=== PATIENT | female | born 1950 | race Caucasian/White ===

== ENCOUNTER 2016-09-12 12:33 | Emergency (ER) | payer OTHER ==
[2016-09-12 12:42] VITALS: TEMP 97.3
--- NOTE | 2016-09-12 13:35 | EDPHY ---
H & P Stated Complaint: SI/withdrawal from ativan/seen yesterday at [facility] Time Seen by Provider: 09/12/16 12:53 HPI/ROS: CHIEF COMPLAINT: "I am withdrawing from benzos" HISTORY OF PRESENT ILLNESS: 66-year-old female in the ER via private vehicle, driven by her daughter complaining of increased anxiety and possible benzodiazepine withdrawal. History of PTSD, has been on feeling Ativan for 1 year and was recently tapered down by her psychiatrist but notes increasing agitation, anxiety and depression without suicidal or homicidal ideation. Seen at [facility] yesterday and requested medical detoxification however this was unsuccessful and comes to the ER today requesting similar. REVIEW OF SYSTEMS: A ten point review of systems was performed and is negative with the exception of the items mentioned in the HPI PAST MEDICAL & SURGICAL HISTORY: PTSD. Anxiety. SOCIAL HISTORY: Nonsmoker. No alcohol. Lives with her daughter who is a nurse PHYSICAL EXAM (Prior to examination, patient consented to physical exam, hands were washed and my usual and customary physical exam procedures followed) 1) GENERAL: Well-developed, well-nourished, alert and oriented. Appears anxious 2) HEAD: Normocephalic, atraumatic 3) HEENT: Pupils equal, round, reactive to light bilaterally. Sclera anicteric. 4) NECK: Full range of motion, no meningeal signs. 5) LUNGS: Clear auscultation bilaterally, no wheezes, no rhonchi, no retractions. 6) HEART: Regular rate and rhythm, no murmur, no heave, no gallop. 7) ABDOMEN: No guarding, no rebound, no focal tenderness,, 8) MUSCULOSKELETAL: No peripheral edema or discoloration. 9) BACK: no visual or palpable abnormality. 10) SKIN: No rash, no petechiae. DIFFERENTIAL DIAGNOSIS: no particular order including but not limited to acute benzodiazepine withdrawal, suicidal ideation, homicidal ideation - Personal History Current Tetanus/Diphtheria Vaccine: Yes - Medical/Surgical History Hx Asthma: No Hx Chronic Respiratory Disease: No Hx Diabetes: No Hx Cardiac Disease: No Hx Renal Disease: No Hx Cirrhosis: No Hx Alcoholism: No Hx HIV/AIDS: No Hx Splenectomy or Spleen Trauma: No Other PMH: ptsd - Social History Smoking Status: Never smoked Constitutional: Initial Vital Signs Temperature (C) 36.3 C 09/12/16 12:40 Heart Rate 88 09/12/16 12:40 Respiratory Rate 22 H 09/12/16 12:40 Blood Pressure 110/84 H 09/12/16 12:40 O2 Sat (%) 96 09/12/16 12:40 O2 Delivery Mode Room Air Allergies/Adverse Reactions: trazodone Allergy (Verified 09/12/16 12:39) Home Medications: Medication Instructions Recorded Ativan 09/12/16 LaMICtal 09/12/16 Vistaril 09/12/16 Medical Decision Making ED Course/Re-evaluation: 1:34 p.m.: This patient does not meet criteria for mental health hold as she is not she is not experiencing suicidal homicidal ideation, answering questions appropriately.. She would like to remain in the ER voluntarily to be seen by mental health packaging clerk. 5:45 p.m.: Re-evaluation, Sleeping 5:56 p.m.: Mental health packaging clerk has evaluated patient. Patient does not meet criteria for mental health hold. Mental health packaging clerk has provided options the patient including following up [facility] on a nonemergent basis. In order to this patient will need to call tonight or tomorrow morning to set up an intake appointment. The patient has a sufficient supply of benzodiazepines at home. Recommend she not quit taking her benzodiazepines "cold turkey" due to risk of withdrawal complications including, but not limited to, seizure, . - Data Points Laboratory Results: Laboratory Results 09/12/16 14:55 09/12/16 14:55 09/12/16 09/12/16 09/12/16 15:40 14:55 14:55 WBC 9.04 10^3/uL 10^3/uL (3.80-9.50) RBC 4.56 10^6/uL 10^6/uL (4.18-5.33) Hgb 14.4 g/dL g/dL (12.6-16.3) Hct 41.9 % % (38.0-47.0) MCV 91.9 fL fL (81.5-99.8) MCH 31.6 pg pg (27.9-34.1) MCHC 34.4 g/dL g/dL (32.4-36.7) RDW 11.8 % % (11.5-15.2) Plt Count 328 10^3/uL 10^3/uL (150-400) MPV 8.3 fL L fL (8.7-11.7) Neut % (Auto) 62.6 % % (39.3-74.2) Lymph % (Auto) 28.7 % % (15.0-45.0) [place] % (Auto) 6.2 % % (4.5-13.0) Eos % (Auto) 1.4 % % (0.6-7.6) Baso % (Auto) 0.7 % % (0.3-1.7) Nucleat RBC Rel Count 0.0 % % (0.0-0.2) Absolute Neuts (auto) 5.66 10^3/uL 10^3/uL (1.70-6.50) Absolute Lymphs (auto) 2.59 10^3/uL 10^3/uL (1.00-3.00) Absolute Monos (auto) 0.56 10^3/uL 10^3/uL (0.30-0.80) Absolute Eos (auto) 0.13 10^3/uL 10^3/uL (0.03-0.40) Absolute Basos (auto) 0.06 10^3/uL 10^3/uL (0.02-0.10) Absolute Nucleated RBC 0.00 10^3/uL 10^3/uL (0-0.01) Immature Gran % 0.4 % % (0.0-1.1) Immature Gran # 0.04 10^3/uL 10^3/uL (0.00-0.10) Sodium 139 mEq/L mEq/L (134-144) Potassium 5.0 mEq/L mEq/L (3.5-5.2) Chloride 100 mEq/L mEq/L (97-110) Carbon Dioxide 27 mEq/l mEq/l (22-31) Anion Gap 12 mEq/L mEq/L (8-16) BUN 28 mg/dL H mg/dL (7-23) Creatinine 1.1 mg/dL H mg/dL (0.6-1.0) Estimated GFR 50 Glucose 105 mg/dL H mg/dL (70-100) Calcium 10.0 mg/dL mg/dL (8.5-10.4) Urine Opiates Screen NEGATIVE (NEGATIVE) Urine Barbiturates NEGATIVE (NEGATIVE) Ur Phencyclidine Scrn NEGATIVE (NEGATIVE) Ur Amphetamine Screen NEGATIVE (NEGATIVE) U Benzodiazepines Scrn NEGATIVE (NEGATIVE) Urine Cocaine Screen NEGATIVE (NEGATIVE) U Marijuana (THC) Screen NEGATIVE (NEGATIVE) Ethyl Alcohol < 10 mg/dL mg/dL (0-10) Departure - Departure Disposition: Home, Routine, Self-Care Clinical Impression: Benzodiazepine dependence Condition: Good Instructions: Benzodiazepine Abuse (ED) Additional Instructions: Call [facility] in the morning to set up an intake appointment at their earliest availability. Referrals: [facility] ([place],. [Clinic] - As per Instructions (Call [facility] tonight or tomorrow morning to setup an intake appointment at their soonest availability.)
[2016-09-12 15:01] LABS: % IMMATURE GRANULYOCYTES 0.4 % (0.0-1.1); ABSOLUTE IMMATURE GRANULOCYTES 0.04 10^3/uL (0.00-0.10); ADD DIFF? NO; ADD MORPH? NO; ADD SCAN? NO; ATYPICAL LYMPHOCYTE FLAG 0 (0-99); FRAGMENT RBC FLAG 0 (0-99); HEMATOCRIT 41.9 % (38.0-47.0); HEMOGLOBIN 14.4 g/dL (12.6-16.3); LEFT SHIFT FLG 0 (0-99); LIPEMIA HEMOLYSIS FLAG 90 (0-99); MEAN CELL HEMOGLOBIN 31.6 pg (27.9-34.1); MEAN CELL HEMOGLOBIN CONCENTR. 34.4 g/dL (32.4-36.7); MEAN CELL VOLUME 91.9 fL (81.5-99.8); MEAN PLATELET VOLUME 8.3 fL (8.7-11.7); PLATELET CLUMPS FLAG 0 (0-99); PLATELET COUNT 328 10^3/uL (150-400); RED BLOOD CELL COUNT 4.56 10^6/uL (4.18-5.33); RED CELL DISTRIBUTION WIDTH 11.8 % (11.5-15.2)
[2016-09-12 15:19] LABS: ANION GAP 12 mEq/L (8-16); CARBON DIOXIDE 27 mEq/l (22-31); CHLORIDE 100 mEq/L (97-110); CREATININE 1.1 mg/dL (0.6-1.0); ETHANOL SERUM < 10 mg/dL (0-10); GLOMERULAR FILTRATION RATE 50; GLUCOSE 105 mg/dL (70-100); SODIUM 139 mEq/L (134-144)
[2016-09-12] MEDS ORDERED: LORazepam 0.5 MG TAB ONE (16:44)
[2016-09-12 17:20] VITALS: BP 126/77; PULSE 84; RESP 16; O2SAT 97
== END 2016-09-12 18:37 | disposition home or self-care (01) ==
DX: F13.20 Sedative, hypnotic or anxiolytic dependence, uncomplicated (principal)
CPT/HCPCS: 80305; G0480

== ENCOUNTER → 2017-08-10 | Outpatient (CLI) | payer OTHER, MEDICAID ==
--- NOTE | 2017-08-10 14:35 | CPEEG ---
[f rep st] ELECTROENCEPHALOGRAM DATE OF STUDY: 08/10/2017 DATE OF INTERPRETATION: 08/10/2017 INTERPRETATION: Normal EEG during wakefulness and drowsiness. There were no potentially epileptogenic abnormalities present in the recording. REPORT: This EEG contains 9-10 Hz alpha to the posterior head regions. There was no abnormal activation at rest, during photic stimulation or hyperventilation. The patient intermittently became drowsy during the study. During drowsiness, the patient had intermittent bitemporal slow transients, maximal left. This is a normal drowsy pattern in this age group. There was no abnormal activation during drowsiness or during times of arousal. /[id number]/MODL MTDD
== END ==
LOC: FCPNEURO 12:49
PROVIDERS: ATTEND Psychiatry & Neurology Neurology
DX: R41.89 Other symptoms and signs involving cognitive functions and awareness (principal)